=== PATIENT | male | born 1950 | race African-American/Black ===

== ENCOUNTER 2025-08-27 15:22 | Inpatient (IN) | payer MEDICARE, OTHER ==
[~2025-08-27] VITALS: Ht 165.1 cm; Wt 79.4 kg
[2025-08-27 16:21] LABS: PLATELET COUNT (AUTO) 236 K/uL (150-450); RED BLOOD CELL COUNT(AUTO) 3.49 MIL/uL (4.5-6.0); RED CELL DISTRIBUTION WIDTH 15.4 % (11.5-15.0); WHITE BLOOD COUNT (AUTO) 10.7 K/uL (4.3-11.0)
[2025-08-27 16:33] LABS: CALCIUM, SERUM 8.5 mg/dL (8.5-10.1); CREATININE 2.2 mg/dL (0.6-1.3); SODIUM SERUM 140.0 mmol/L (136-145); UREA NITROGEN, BLOOD 60.0 mg/dL (7-18)
[2025-08-27 16:48] LABS: ASPARTATE AMINOTRANSFERASE 20.0 U/L (15-37); TOTAL PROTEIN, SERUM 6.5 g/dL (6.4-8.2)
[2025-08-27] MEDS: IV NS 0.9% 1,000 ML BAG IV ONE (17:38)
[2025-08-27] MEDS ORDERED: ALBU2.5V13 IH (17:51)
[2025-08-27] MEDS ORDERED: HEPA50007 SQ (17:51)
[2025-08-27] MEDS ORDERED: MELA3CAP2 PO (17:51)
[2025-08-27] MEDS ORDERED: NA P133E RC (17:51)
[2025-08-27] MEDS ORDERED: MAGN400O6 PO (17:51)
[2025-08-27] MEDS ORDERED: INSU100V39 SQ ×2 (17:51)
[2025-08-27] MEDS ORDERED: IPRA0.2S49 IH (17:51)
[2025-08-27] MEDS ORDERED: CALC-494 PO (17:51)
[2025-08-27] MEDS ORDERED: DEXTROMETHORPHAN PO (17:51)
[2025-08-27] MEDS ORDERED: CHOL500062 PO (17:51)
[2025-08-27] MEDS ORDERED: CLOP75TA15 PO (17:51)
[2025-08-27] MEDS ORDERED: MULT-213 PO (17:51)
[2025-08-27] MEDS ORDERED: ACET325T53 PO ×2 (17:51)
[2025-08-27] MEDS ORDERED: DOCU100T2 PO (17:51)
[2025-08-27] MEDS ORDERED: FURO20TA4 PO (17:51)
[2025-08-27] MEDS ORDERED: DONE10TA44 PO (17:51)
[2025-08-27] MEDS ORDERED: SODI650T PO (17:51)
[2025-08-27] MEDS ORDERED: MAGN400T52 PO (17:51)
[2025-08-27] MEDS ORDERED: ALLO100T PO (17:51)
[2025-08-27] MEDS ORDERED: ATOR40TA PO (17:51)
[2025-08-27] MEDS ORDERED: BENZ150C4 PO (17:51)
[2025-08-27] MEDS ORDERED: ASPI-1169 PO (17:51)
[2025-08-27] MEDS ORDERED: BISA10SU61 RC (17:51)
[2025-08-27] MEDS ORDERED: insulin glargine SQ (17:51)
[2025-08-27] MEDS ORDERED: ONDANSETRON HCL/PF 4 MG/2 ML VIAL IVP PRN (19:00)
[2025-08-27] MEDS ORDERED: MAG HYDROX/AL HYDROX/SIMETH 30 ML UDC PO PRN (19:00)
[2025-08-27] MEDS ORDERED: ACETAMINOPHEN 325 MG TABLET PO PRN (19:00)
[2025-08-27] MEDS ORDERED: NA PHOS,M-B/NA PHOS,DI-BA 1 EA ENEMA RC PRN (19:00)
[2025-08-27] MEDS ORDERED: BISACODYL SUPP (10 MG) 10 MG/SUPP.RECT SUPP.RECT RC PRN (19:00)
[2025-08-27] MEDS ORDERED: MAGNESIUM HYDROXIDE 30 ML UDC PO PRN (19:00)
[2025-08-27] MEDS ORDERED: Z GUARD REMEDY 4 OZ OINT TP PRN (19:00)
[2025-08-27 19:13] LABS: APPEARANCE,URINE CLEAR (CLEAR); BLOOD, URINE NEGATIVE Ery/uL (NEGATIVE); LEUKOCYTE ESTERASE ,URINE NEGATIVE (NEGATIVE); NITRITE, URINE NEGATIVE (NEGATIVE); UGLUCOSE NEGATIVE (NEGATIVE)
[2025-08-27 19:24] LABS: ADD URINE CULTURE NO; SQUAMOUS EPITHELIAL CELL,UR Rare /HPF (None Seen)
[2025-08-27 21:00] VITALS: BP 118/89; TEMP 97.7; O2SAT 97
[2025-08-27 22:54] VITALS: BP 118/89; TEMP 97.7; O2SAT 97
[2025-08-27] MEDS: ATORVASTATIN 40 MG TABLET PO SCH (23:14)
[2025-08-27] MEDS: HEPARIN SODIUM, PORCINE 5000 UNITS/1 ML VIAL SQ SCH (23:15)
[2025-08-28 07:56] LABS: PLATELET COUNT (AUTO) 215 K/uL (150-450); RED BLOOD CELL COUNT(AUTO) 3.33 MIL/uL (4.5-6.0); RED CELL DISTRIBUTION WIDTH 15.7 % (11.5-15.0); WHITE BLOOD COUNT (AUTO) 8.6 K/uL (4.3-11.0)
[2025-08-28 08:00] VITALS: BP 106/69; TEMP 97.9; O2SAT 98
[2025-08-28 08:11] LABS: CALCIUM, SERUM 8.2 mg/dL (8.5-10.1); CREATININE 2.0 mg/dL (0.6-1.3); PHOSPHORUS 3.8 mg/dL (2.5-4.9); SODIUM SERUM 139.0 mmol/L (136-145); UREA NITROGEN, BLOOD 54.0 mg/dL (7-18)
[2025-08-28] MEDS: DONEPEZIL 5 MG TABLET PO SCH (08:23)
[2025-08-28] MEDS: CLOPIDOGREL BISULFATE 75 MG TABLET PO SCH (08:23)
[2025-08-28] MEDS: SODIUM BICARBONATE 650 MG TABLET PO SCH (08:23)
[2025-08-28] MEDS: DOCUSATE SODIUM 100 MG CAPSULE PO SCH (08:23)
[2025-08-28] MEDS: MAGNESIUM OXIDE 400 MG TABLET PO SCH (08:23)
[2025-08-28] MEDS: ASPIRIN 81 MG TAB.CHEW PO SCH (08:24)
[2025-08-28] MEDS: ALLOPURINOL 100 MG TABLET PO SCH (08:24)
[2025-08-28] MEDS ORDERED: FUROSEMIDE 20 MG TABLET PO SCH (09:00)
[2025-08-28 15:08] LABS: CREATININE, URINE 96.6 MG/DL (30.0-125.0); URINE SODIUM, RANDOM 37.0 mmol/l (40-220); URINE TOTAL PROTEIN 101.4 mg/dL (0-11.9)
[2025-08-28 16:00] VITALS: BP 118/77; TEMP 97.5; O2SAT 94
[2025-08-28 20:00] VITALS: BP 115/80; TEMP 98.1; O2SAT 99
[2025-08-29] MEDS: IV NS 0.9% 1,000 ML IV PRN (02:51)
[2025-08-29 07:42] LABS: PLATELET COUNT (AUTO) 219 K/uL (150-450); RED BLOOD CELL COUNT(AUTO) 3.23 MIL/uL (4.5-6.0); RED CELL DISTRIBUTION WIDTH 15.5 % (11.5-15.0); WHITE BLOOD COUNT (AUTO) 8.9 K/uL (4.3-11.0)
[2025-08-29 07:58] LABS: CREATINE KINASE, TOTAL 44.0 U/L (39-308)
[2025-08-29 08:00] VITALS: BP 108/69; TEMP 98.7; O2SAT 99
[2025-08-29 08:47] LABS: ASPARTATE AMINOTRANSFERASE 16.0 U/L (15-37); CALCIUM, SERUM 8.3 mg/dL (8.5-10.1); CREATININE 1.9 mg/dL (0.6-1.3); PHOSPHORUS 3.1 mg/dL (2.5-4.9); SODIUM SERUM 142.0 mmol/L (136-145); TOTAL PROTEIN, SERUM 6.0 g/dL (6.4-8.2); UREA NITROGEN, BLOOD 46.0 mg/dL (7-18)
[2025-08-29 23:50] VITALS: BP 116/82; TEMP 98.2; O2SAT 98
[2025-08-30 03:09] LABS: PTH, INTACT 49 pg/mL (15-65)
[2025-08-30] MEDS: IPRATROPIUM NEB FS 0.5 MG/2.5 ML AMPUL.NEB NEB PRN (03:41)
[2025-08-30] MEDS: ALBUTEROL FS 2.5 MG/0.5 ML VIAL.NEB NEB PRN (03:41)
[2025-08-30 03:42] VITALS: O2SAT 96
[2025-08-30 03:57] VITALS: O2SAT 98
[2025-08-30 08:23] LABS: ASPARTATE AMINOTRANSFERASE 10.0 U/L (15-37); CALCIUM, SERUM 8.2 mg/dL (8.5-10.1); CREATININE 1.6 mg/dL (0.6-1.3); PHOSPHORUS 3.1 mg/dL (2.5-4.9); SODIUM SERUM 138.0 mmol/L (136-145); TOTAL PROTEIN, SERUM 6.0 g/dL (6.4-8.2); UREA NITROGEN, BLOOD 40.0 mg/dL (7-18)
[2025-08-30 08:30] LABS: PLATELET COUNT (AUTO) 205 K/uL (150-450); RED BLOOD CELL COUNT(AUTO) 3.18 MIL/uL (4.5-6.0); RED CELL DISTRIBUTION WIDTH 15.5 % (11.5-15.0); WHITE BLOOD COUNT (AUTO) 9.3 K/uL (4.3-11.0)
[2025-08-30 09:42] VITALS: BP 108/74; TEMP 98.1; O2SAT 97
[2025-08-30 11:19] VITALS: O2SAT 95
[2025-08-30 11:34] VITALS: O2SAT 98
[2025-08-31] MEDS ORDERED: INSU100I30 SQ (18:37)
[2025-08-31] MEDS ORDERED: GUAI10LI12 PO (18:37)
[2025-09-01 10:12] LABS: *SPE A/G RATIO 1.0 (0.7-1.7); *SPE ALBUMIN 2.6 g/dL (2.9-4.4); *SPE ALPHA-1-GLOBULIN 0.3 g/dL (0.0-0.4); *SPE ALPHA-2-GLOBULIN 1.1 g/dL (0.4-1.0); *SPE BETA GLOBULIN 0.9 g/dL (0.7-1.3); *SPE GLOBULIN, TOTAL 2.7 g/dL (2.2-3.9); *SPE M-SPIKE Not Observed g/dL (Not Observed); *SPE PROTEIN TOTAL 5.3 g/dL (6.0-8.5); *SPEGAMMA GLOBULIN 0.4 g/dL (0.4-1.8)
== END 2025-08-30 13:30 | DRG 56 ==
LOC: ER 15:39 → MED 20:36
PROVIDERS: ADMIT Internal Medicine; ATTEND Internal Medicine
DX: I69.334 Monoplegia of upper limb following cerebral infarction affecting left non-dominant side (principal); N17.0 Acute kidney failure with tubular necrosis; E44.0 Moderate protein-calorie malnutrition; I50.32 Chronic diastolic (congestive) heart failure; E88.09 Other disorders of plasma-protein metabolism, not elsewhere classified; E11.22 Type 2 diabetes mellitus with diabetic chronic kidney disease; E78.5 Hyperlipidemia, unspecified; D64.9 Anemia, unspecified; Z79.02 Long term (current) use of antithrombotics/antiplatelets; I13.0 Hypertensive heart and chronic kidney disease with heart failure and stage 1 through stage 4 chronic kidney disease, or unspecified chronic kidney disease; J44.9 Chronic obstructive pulmonary disease, unspecified; N18.9 Chronic kidney disease, unspecified; R25.1 Tremor, unspecified; Z79.4 Long term (current) use of insulin; Z79.899 Other long term (current) drug therapy
CPT/HCPCS: 36415; 70450-TC; 70551-TC; 71045-TC; 76770-TC; 80048-TC; 80053-TC; 80076-TC; 81001; 82550-TC; 82570-TC; 83735-TC; 83970; 84100-TC; 84155; 84165; 84300-TC; 84443-TC; 85025-TC; 87081-TC; 93880-TC; 94799-TC; 97112-TC; 97116-TC; 97530-TC; A4223; G0378; J1644; J7030